=== PATIENT | male | born 1945 | race Caucasian/White ===

== ENCOUNTER → 2021-04-18 09:01 | Outpatient (CLI) | payer MEDICARE, SELFPAY ==
[2021-04-18 09:26] LABS: Basophils # 0.1 K/mm3 (0-0.2); Basophils % 1.2 % (0.1-2.0); Eosinophils # 0.6 K/mm3 (0.0-0.4); Eosinophils % 11.3 % (0.1-12.0); Hematocrit 46.1 % (42.0-52.0); Hemoglobin 15.3 g/dL (14.1-18.0); Lymphocytes % 18.5 % (10-50); Mean Corpuscular HGB Conc 33.1 g/dL (31.8-35.4); Mean Corpuscular Hemoglobin 30.7 pg (27.0-31.2); Mean Corpuscular Volume 92.7 fl (80-94); Mean Platelet Volume 9.4 fl (7.4-10.4); Monocytes # 0.4 K/mm3 (0.1-1.0); Neutrophils # 3.3 K/mm3 (1.8-7.8); Neutrophils % 61.1 % (37.0-80.0); Platelet Count 198 K/mm3 (142-424); Red Blood Count 4.97 M/mm3 (4.60-6.20); Red Cell Distribution Width 14.8 % (11.5-17.5); White Blood Count 5.5 K/mm3 (4.8-10.8)
[2021-04-18 10:02] LABS: Alanine Aminotransferase 21 U/L (12-78); Albumin Level 3.9 g/dl (3.5-5.0); Albumin/Globulin Ratio 1.3 (1.1-1.8); Alkaline Phosphatase 72 U/L (38-126); Anion Gap 8.9 mEq/L (5-15); Aspartate Amino Transferase 27 U/L (17-59); Bilirubin,Total 0.5 mg/dl (0.2-1.3); Blood Urea Nitrogen 24 mg/dl (9-20); Calcium 9.2 mg/dl (8.4-10.2); Carbon Dioxide 29 mmol/L (22.0-30.0); Chloride 104 mmol/L (98-107); Estimated Glomerular Filt Rate 59 ml/min (>60); GFR (African American) 72 ML/MIN (>60); Glucose 107 mg/dl (74-100); Potassium 4.9 mmoL/L (3.5-5.1); Sodium 137 mmol/L (136-145); Total Protein,Serum 6.9 g/dl (6.3-8.2); Uric Acid 5.6 mg/dl (3.5-8.5)
[2021-04-18 10:07] LABS: Erythrocyte Sedimentation Rate 14 mm/hr (0-20)
[2021-04-18 10:08] LABS: C-Reactive Protein 0.6 mg/L (0-4)
[2021-04-19 10:12] LABS: Hep A Ab, IgM Negative (Negative); Hepatitis B Core Antibody IgM Negative (Negative); Hepatitis B Surface Antigen Negative (Negative); Hepatitis C Antibody 0.1 s/co ratio (0.0-0.9)
[2021-04-22 05:36] LABS: QuantiFERON-TB Gold Plus Negative (Negative)
== END ==
PROVIDERS: Visit Provider Nurse Practitioner Family
DX: M06.09 Rheumatoid arthritis without rheumatoid factor, multiple sites (principal); M10.9 Gout, unspecified; R53.83 Other fatigue; Z79.899 Other long term (current) drug therapy
CPT/HCPCS: 36415; 80053; 80074; 84550; 85025; 85651; 86140; 86480

== ENCOUNTER 2022-10-08 09:08 | Emergency (ER) | payer MEDICARE, SELFPAY ==
[2022-10-08] VITALS (10 sets, daily range): BP systolic 120–155; BP diastolic 84–103; PULSE 58–100; RESP 13–17; TEMP 36.6–36.7; O2SAT 95–100; BMI 29.5
--- NOTE | 2022-10-08 09:09 | PC.NURSE ---
DR CRABTREE AT BEDSIDE
--- NOTE | 2022-10-08 09:11 | ECG_ITS ---
APPROVED REPORT Exam: Resting ECG HR:97 bpm ECG Measurements Heart Rate 97 AXES MI 147 P -61 QRSd 101 QRS -42 QT 330 T 52 QTc 385 Conclusion ECTOPIC ATRIAL RHYTHM LEFT AXIS DEVIATION [QRS AXIS < -30] LOW QRS VOLTAGE IN PRECORDIAL LEADS [QRS DEFLECTION < 1.0 mV IN CHEST LEADS] INCOMPLETE RIGHT BUNDLE BRANCH BLOCK [90+ ms QRS DURATION, TERMINAL R IN V1/V2, 40+ ms S IN I/aVL/V4/V5/V6] ANTERIOR MYOCARDIAL INFARCTION , OF INDETERMINATE AGE [40+ ms Q WAVE AND/OR ST/T ABNORMALITY IN V3/V4] ABNORMAL ECG UNCONFIRMED REPORT Electronically signed by : Joel Millan MD 10/09/2022 22:08:43
--- NOTE | 2022-10-08 09:13 | CT_ITS ---
FINAL REPORT CLINICAL HISTORY: RLE weakness atraumatic FINDINGS: CT LUMBAR SPINE TECHNIQUE: Thin section axial CT with sagittal and coronal reconstructions FINDINGS: No fracture is present. Degenerative subluxation at multiple levels. Moderate dextroscoliosis. Significant degenerative canal stenosis throughout the lumbar spine related to disc disease and bony hypertrophic changes. IMPRESSION: 1. No acute fracture 2. Severe degenerative changes. This study was performed using automated techniques to achieve radiation exposure as low as reasonably achievable Reviewed, Interpreted and Dictated by Vilma Lujan MD Transcribed by Rocío Davis Authenticated and [facility]
--- NOTE | 2022-10-08 09:14 | XR_ITS ---
FINAL REPORT CLINICAL HISTORY: RLE weakness FINDINGS: No acute pulmonary opacity is present. There is no evidence of effusion or pneumothorax. Mediastinum is unremarkable. Heart size is normal. Old right rib fractures are noted. IMPRESSION: No acute abnormality. Reviewed, Interpreted and Dictated by Vilma Lujan MD Transcribed by Rocío Davis Authenticated and . [facility]
--- NOTE | 2022-10-08 09:14 | CT_ITS ---
FINAL REPORT CLINICAL HISTORY: fall, head trauma, stroke alert rt leg weakness FINDINGS: Advanced atrophy and chronic ischemic white matter changes are noted. No cortical edema is present. There is no mass or hemorrhage. Ventricles are normal. Bone windows show no skull fracture or obvious obstructive lesion. IMPRESSION: 1. No acute intracranial abnormality or obvious mass. 2. Atrophy and chronic ischemic white matter changes as above. Reviewed, Interpreted and Dictated by Vilma Lujan MD Transcribed by Rocío Davis Authenticated and [facility]
--- NOTE | 2022-10-08 09:14 | CT_ITS ---
FINAL REPORT CLINICAL HISTORY: stroke alert, rt leg weakness FINDINGS: CT NECK ANGIO, WITHOUT AND WITH CONTRAST TECHNIQUE: Thin section axial CT with IV contrast supplemented with 3D MIP reconstruction NASCET criteria and technique was utilized during interpretation. FINDINGS: Aortic arch: Arch shows no significant narrowing. Great vessel origins are widely patent. Right carotid: Minimal plaque disease. No significant stenosis is seen of the cervical common or internal carotid artery. Left carotid: Minimal plaque disease. No significant stenosis is seen of the cervical common or internal carotid artery. Vertebrals: Right vertebral artery is dominant and widely patent. Left vertebral artery is diminutive with the midportion occluded. IMPRESSION: No evidence of significant carotid stenosis. Dominant right vertebral artery widely patent. Left vertebral arterial disease. This study was performed using automated techniques to achieve radiation exposure as low as reasonably Reviewed, Interpreted and Dictated by Vilma Lujan MD Transcribed by Jonathan Savage Authenticated and . [facility]
--- NOTE | 2022-10-08 09:14 | CT_ITS ---
FINAL REPORT CLINICAL HISTORY: stroke alert, rt leg weakness FINDINGS: CTA HEAD TECHNIQUE: Thin section axial CT with contrast with 3D MIP reconstruction FINDINGS: No aneurysm is seen. Major intracranial vessels are patent without significant stenosis. . Persistent origin of the left POSTDOCTORAL FELLOW. Small left distal vertebral artery is stenotic. There may be retrograde flow filling the left vertebral artery. IMPRESSION: Anterior circulation intact. Disease of the distal left vertebral artery. This study was performed using automated techniques to achieve radiation exposure as low as reasonably achievable Reviewed, Interpreted and Dictated by Vilma Lujan MD Transcribed by Jonathan Savage Authenticated and [facility]
--- NOTE | 2022-10-08 09:16 | HMH.EDGENADL ---
Discharge Plan Disposition Patient Disposition: Home, Self-Care Condition: Good Prescriptions Prescriptions: New aspirin [Enteric Coated Aspirin] 81 mg tablet,delayed release (DR/EC) 81 mg PO DAILY 30 Days Qty: 30 0RF clopidogrel [Plavix] 75 mg tablet 75 mg PO DAILY 30 Days Qty: 30 0RF atorvastatin [Lipitor] 40 mg tablet 40 mg PO HS 30 Days Qty: 30 0RF prednisone 20 mg tablet 40 mg PO BID 5 Days Qty: 20 0RF Continued leflunomide 20 mg tablet 20 mg PO DAILY methotrexate sodium 2.5 mg tablet 2.5 mg PO ONCE folic acid 1 mg tablet 1 mg PO DAILY Humira Pen 40 mg/0.8 mL Pen Injector Kit 40 mg SQ WEEKLY Referrals Follow up/Referrals: Guera Portillo MD [Primary Care Provider] - See instructions Araseli Figueroa APRN [Nurse Practitioner] - 10/10/22 8:00 am Clinical Impressions Clinical Impression: Transient right leg weakness Discharge ED Provider: Domingo Delong General Adult HPI General Chief complaint: Weakness Stated complaint: WEAKNESS Time Seen by Provider: 10/08/22 09:12 History of Present Illness HPI narrative: This is a 77-year-old male with history of RA currently on Humira and weekly methotrexate presenting with right lower extremity weakness. Patient states about 1/2-hour prior to arrival, he had an acute weakness in his right lower extremity and right upper extremity. Since that time, right upper extremity has largely improved, it is weak and feels heavy, and tingling, but currently denying any large deficits from baseline of his right upper extremity. Right lower extremity completely immobile, but sensation intact. Patient denies trauma, heavy lifting, states he was walking through tall grass and I had to lift it higher than I usually do, but denies any other history outside of room with normal for him. Denies saddle anesthesia, bowel or bladder dysfunction, left lower extremity symptoms, right-sided facial symptoms, dysarthria, dizziness or imbalance, chest pain, shortness of breath, nausea, vomiting, or any other concerns. Related Data Home Medications Medication Instructions Recorded Confirmed adalimumab 40 mg/0.8 mL 40 mg SQ WEEKLY RA 10/08/22 10/08/22 subcutaneous pen kit (Humira Pen) folic acid 1 mg tablet 1 mg PO DAILY Supplement 10/08/22 10/08/22 leflunomide 20 mg tablet 20 mg PO DAILY RA 10/08/22 10/08/22 methotrexate sodium 2.5 mg tablet 2.5 mg PO ONCE RA 10/08/22 10/08/22 Previous Rx's Medication Instructions Recorded aspirin 81 mg tablet,delayed 81 mg PO DAILY 30 days #30 tabs 10/08/22 release (Enteric Coated Aspirin) atorvastatin 40 mg tablet (Lipitor) 40 mg PO HS 30 days #30 tabs 10/08/22 clopidogrel 75 mg tablet (Plavix) 75 mg PO DAILY 30 days #30 tabs 10/08/22 prednisone 20 mg tablet 40 mg PO BID 5 days #20 tabs 10/08/22 Allergies Allergy/AdvReac Type Severity Reaction Status Date / Time No Known Allergies Allergy Verified 10/08/22 09:09 [facility] Disclaimer: The information contained in this section may have been updated after the patient was seen, as this information can be updated by other users. Medical History Rheumatoid arthritis Family History No significant family history Social History Smoking Status: Never smoker alcohol intake: never current occupational status: retired Travel in the last 8 weeks: None ROS Obtained: Yes All systems reviewed & no additional complaints except as documented Physical Exam General General appearance: alert Head Head exam: atraumatic, normocephalic and normal inspection Eye Eye exam: Present normal appearance, PERRL and EOMI ENT ENT exam: Present normal exam, normal oropharynx, mucous membranes moist, TM's normal bilaterally and normal external ear exam Neck Neck exam: Present normal inspection, full RO
--- NOTE | 2022-10-08 09:18 | PC.NURSE ---
0914 STROKE ALERT, RADIOLOGY NOTIFIED, LAMP SHADE ASSEMBLER NOTIFIED
--- NOTE | 2022-10-08 09:19 | PC.NURSE ---
PT TO CT
--- NOTE | 2022-10-08 09:19 | PC.NURSE ---
Patient going to CT
[2022-10-08 09:23] LABS: Basophils % 0.9 % (0.1-2.0); Eosinophils # 0.2 K/mm3 (0.0-0.4); Eosinophils % 4.1 % (0.1-12.0); Hematocrit 45.9 % (42.0-52.0); Hemoglobin 14.5 g/dL (14.1-18.0); Lymphocytes # 0.9 K/mm3 (0.7-4.5); Lymphocytes % 17.8 % (10-50); Mean Corpuscular HGB Conc 31.6 g/dL (31.8-35.4); Mean Corpuscular Hemoglobin 29.3 pg (27.0-31.2); Mean Corpuscular Volume 92.9 fl (80-94); Mean Platelet Volume 8.9 fl (7.4-10.4); Monocytes # 0.3 K/mm3 (0.1-1.0); Monocytes % 6.4 % (1.7-9.3); Neutrophils # 3.6 K/mm3 (1.8-7.8); Neutrophils % 70.8 % (37.0-80.0); Platelet Count 173 K/mm3 (142-424); Red Blood Count 4.94 M/mm3 (4.60-6.20); Red Cell Distribution Width 14.8 % (11.5-17.5)
[2022-10-08 09:29] LABS: Chloride 101 mmol/L (98-107); Potassium 4.2 mmoL/L (3.5-5.1); Sodium 138 mmol/L (136-145)
[2022-10-08 09:31] LABS: Blood Urea Nitrogen 23 mg/dl (9-20); Creatinine Clearance Estimated 69 mL/min (50-200); Estimated Glomerular Filt Rate 54 ml/min (>60); GFR (African American) 65 ML/MIN (>60)
[2022-10-08 09:32] LABS: Alanine Aminotransferase 22 U/L (12-78); Albumin Level 3.7 g/dl (3.5-5.0); Albumin/Globulin Ratio 1.1 (1.1-1.8); Alkaline Phosphatase 75 U/L (38-126); Anion Gap 13.2 mEq/L (5-15); Aspartate Amino Transferase 32 U/L (17-59); Bilirubin,Total 0.7 mg/dl (0.2-1.3); Calcium 8.9 mg/dl (8.4-10.2); Carbon Dioxide 28 mmol/L (22.0-30.0); Globulin 3.4 g/dL (1.3-3.2); Glucose 103 mg/dl (74-100); Total Protein,Serum 7.1 g/dl (6.3-8.2)
[2022-10-08 09:38] LABS: Activated Partial Thrombo Time 25.8 seconds (22.8-30.6); Prothrombin Time 10.8 seconds (10.1-12.5)
--- NOTE | 2022-10-08 09:40 | PC.NURSE ---
Patient back from CT
[2022-10-08 09:49] LABS: Hemoglobin A1C 5.3 % (4.0-6.0); Troponin I < 0.01 ng/ml (0.00-0.034)
--- NOTE | 2022-10-08 09:54 | PC.NURSE ---
Rounded on patient; call light within reach of patient
--- NOTE | 2022-10-08 09:55 | PC.NURSE ---
bladder scanned showed 247ml in bladder
--- NOTE | 2022-10-08 10:00 | PC.NURSE ---
ROUNDED ON PT, NO NEEDS AT THIS TIME. PT WITH RIGHT LEG CROSSED OVER LEFT, REPORTS BEING ABLE TO LIFT RIGHT LEG FAMILY AT BEDSIDE, CALL LIGHT WITHIN REACH
--- NOTE | 2022-10-08 10:05 | PC.NURSE ---
rounded on pt no complaints at this time, family at bs
[2022-10-08 11:00] LABS: Coronavirus 19, PCR Not Detected (NotDetected); Influenza A, PCR Not Detected (NotDetected); Influenza B, PCR Not Detected (NotDetected)
--- NOTE | 2022-10-08 11:11 | MR_ITS ---
FINAL REPORT TECHNIQUE: Multiplanar MR without gadolinium enhancement CLINICAL HISTORY: RLE weakness, PVR 270 FINDINGS: Sagittal images show normal vertebral height. Alignment is normal. There is moderate diffuse degenerative disc desiccation. Marrow signal pattern is unremarkable. L1-2: There is a mild annular disc bulge and mild facet arthropathy. There is mild central canal stenosis and moderate bilateral neural foraminal narrowing. L2-3: There is a moderate annular disc bulge and facet arthropathy asymmetric to the left. There is left lateral recess stenosis and mild central canal stenosis. There is severe left and moderate right neural foraminal narrowing. L3-4: There is a mild annular disc bulge with mild facet overgrowth. There is mild central canal stenosis and moderate bilateral neural foraminal narrowing. L4-5: There is moderate annular disc bulge and moderate facet arthropathy. There is severe central canal stenosis and severe bilateral neural foraminal narrowing. L5-S1: There is a mild annular disc bulge and moderate facet arthropathy. There is severe bilateral neural neural foraminal narrowing without central canal stenosis. There is a lesion of the left L2 vertebral body with mild expansion extending into the left pedicle. This could be seen with metastatic disease or myeloma. IMPRESSION: 1. Significant multilevel degenerative disc disease and neural foraminal narrowing most pronounced at L4-5. 2. Bony lesion in the left L2 vertebral body could represent myeloma or metastatic disease. Reviewed, Interpreted and Dictated by Vilma Lujan MD Transcribed by Rocío Davis Authenticated and [facility]
--- NOTE | 2022-10-08 11:11 | PC.NURSE ---
POST-VOID BLADDER SCAN 272MLS REPORTED TO ED MD. PT WITHOUT NEEDS AT THIS TIME
--- NOTE | 2022-10-08 11:12 | MR_ITS ---
FINAL REPORT TECHNIQUE: Multiplanar MR without contrast CLINICAL HISTORY: concern for TIA. RIGHT LEG WEAKNESS. FINDINGS: Diffusion sequences show no signal abnormality to indicate acute infarct. Scattered periventricular white matter signal changes are seen compatible with moderate chronic ischemic gliotic disease. Moderate generalized atrophy is present. No mass, hemorrhage or edema is seen. There is a tiny area of chronic encephalomalacia in the right occipital lobe. Ventricles are normal. Major vascular flow voids are intact. IMPRESSION: 1. No mass, acute infarct or hydrocephalus 2. Atrophy and chronic ischemic white matter changes Reviewed, Interpreted and Dictated by Vilma Lujan MD Transcribed by Rocío Davis Authenticated and [facility]
--- NOTE | 2022-10-08 11:12 | PC.NURSE ---
JUAN IN CARE MANAGEMENT NOTIFIED AND OK'D MRI
--- NOTE | 2022-10-08 11:22 | PC.NURSE ---
MRI AT BEDSIDE
--- NOTE | 2022-10-08 11:29 | PC.NURSE ---
PT TO MRI
--- NOTE | 2022-10-08 12:14 | PC.NURSE ---
pt still is at mri, at bs didnt need anything
--- NOTE | 2022-10-08 12:59 | PC.NURSE ---
Pt arrived back to room from mri
--- NOTE | 2022-10-08 12:59 | PC.NURSE ---
PT RETURNED FROM MRI
--- NOTE | 2022-10-08 13:02 | PC.NURSE ---
LAB AT BEDSIDE
--- NOTE | 2022-10-08 13:40 | PC.NURSE ---
Rounded on patient and . requested a drink. Gave a drink and just let them know we were just waiting on the MRI results. Call light within reach of patient
[2022-10-08 13:42] LABS: Troponin I < 0.01 ng/ml (0.00-0.034)
--- NOTE | 2022-10-08 14:09 | PC.NURSE ---
DR CRABTREE UPDATING FAMILY AT THIS TIME
--- NOTE | 2022-10-08 14:17 | PC.NURSE ---
pt voided 150
[2022-10-08 14:18] LABS: Microscopic, Urine URINE MICROSCOPIC (MICROSCOPIC)
--- NOTE | 2022-10-08 14:23 | PC.NURSE ---
Calling [facility] to speak with someone in spine surgery for in the ed for possible transfer
--- NOTE | 2022-10-08 14:33 | PC.NURSE ---
DR CRABTREE SPEAKING WITH [facility]
--- NOTE | 2022-10-08 14:33 | PC.NURSE ---
Chavo Coates is speaking with from Md
[2022-10-08 14:42] LABS: Appearance,Urine Clear (Clear); Bilirubin,Urine Negative (Negative); Blood, Urine 2+ (Negative); Color,Urine Yellow (Yellow); Glucose,Urine (UA) Negative (Negative); Ketones,Urine Negative (Negative); Leukocyte Esterase,Urine Negative (Negative); Nitrate,Urine Negative (Negative); Protein,Urine Negative (Negative); Urobilinogen,Urine 0.2 EU/dl (0.2)
[2022-10-08 14:43] LABS: Bacteria,Urine Trace /lpf
--- NOTE | 2022-10-08 14:46 | MR_ITS ---
PROCEDURE INFORMATION: Exam: MR Cervical Spine Without Contrast Exam date and time: 10/08/2022 4:00 PM Age: 77 years old Clinical indication: Weakness; Additional info: Ra, rue and rle weakness TECHNIQUE: Imaging protocol: Magnetic resonance imaging of the cervical spine without contrast. COMPARISON: CT ANGIO NECK 10/08/2022 9:33 AM FINDINGS: Bones/joints: Straightening of the cervical lordosis. Alignment is otherwise maintained.There is preservation of vertebral body heights. No marrow replacing process. Spinal cord: Normal in signal characteristics.. C2-C3: No significant disc bulge or herniation. No severe spinal canal stenosis. No significant neural foraminal narrowing. C3-C4: Shallow central disc protrusion noted. No significant spinal canal stenosis. Uncovertebral and facet arthropathy produce moderate bilateral neural foraminal narrowing. C4-C5: Shallow central disc protrusion contributes to mild spinal canal stenosis. Uncovertebral and facet arthropathy produce severe bilateral neural foraminal narrowing. C5-C6: Central disc protrusion contributes to [id number] spinal canal stenosis.Uncovertebral and facet arthropathy produce severe bilateral neural foraminal narrowing. C6-C7: Central disc protrusion contributes to gawixaql-[id number] spinal canal stenosis.Uncovertebral and facet arthropathy produce severe bilateral neural foraminal narrowing. C7-T1: No significant disc bulge or herniation. No severe spinal canal stenosis. No significant neural foraminal narrowing. Soft tissues: Unremarkable. Vasculature: Left vertebral artery flow void is obscured by motion artifact. Right vertebral artery flow void is intact. Other findings: Motion artifact does moderately limit the sensitivity of this examination. IMPRESSION: Multilevel degenerative changes more notable for [id number] spinal canal stenosis at C5-C6 and C6-C7 level
--- NOTE | 2022-10-08 14:48 | PC.NURSE ---
DIETARY NOTIFIED AT THIS TIME
--- NOTE | 2022-10-08 14:57 | PC.NURSE ---
rounded on pt states he doesn't need anything at this time,family at bs
--- NOTE | 2022-10-08 15:00 | PC.NURSE ---
SPOKE WITH FAVIO IN CARE MANAGEMENT, APPROVAL OF CERVICAL MRI
--- NOTE | 2022-10-08 15:18 | PC.NURSE ---
DR CRABTREE SPEAKING WITH DR BROWN
--- NOTE | 2022-10-08 15:44 | PC.NURSE ---
[facility]
--- NOTE | 2022-10-08 15:47 | PC.NURSE ---
mri called and said they had on scheduled and wasn't able to do, so they are coming to get Mr Oh for his mri
--- NOTE | 2022-10-08 15:52 | PC.NURSE ---
PT TO MRI
--- NOTE | 2022-10-08 16:20 | EXP.HP ---
History of Present Illness *Admission Date: 10/08/22 *Reason for visit:: Right-sided weakness *History of present illness: Medicine was consulted by ER to discuss possible admission for observation versus discharge home. Mr. Beavers is a pleasant 77-year-old male with history of RA on Humira and weekly methotrexate. He presented to the ER with right lower extremity weakness. On evaluation he states that approximately an hour before coming into the ER he had an acute episode of weakness in his right lower extremity and right upper extremity. States he was stepping over some grass and had to lift his right leg high. Normally he walks with almost a shuffling gait per his report. Upon doing this his right leg felt very heavy and weak and he proceeded to fall. He was able to get himself back to his truck and drive back to his house. He unfortunately could not use his leg at this time and also noted right upper extremity weakness. No reported facial droop per family. His brought him to the hospital and he was noted to have right lower extremity immobility and weakness, still having intact sensation however. Required ER staff to get him out of the car as he could not bear weight or use his right leg. Denied any numbness or tingling in his groin, no bladder or bowel dysfunction. No left-sided deficits. Normal speech. Denies any dizziness or vertigo. No chest pain, shortness of breath, nausea or vomiting. The ER initiated an extensive work-up with imaging of patient's head and back. Labs obtained that were essentially normal/nonactionable. CBC and CMP within a normal range. CTs did not show any acute strokes. MRI showed concern for lumbar radiculopathy and foraminal narrowing most significant at L4/L5. No compression of cord noted on spinal imaging. The ER reached out to neurosurgery at , they recommended outpatient follow-up for the back findings. During his work-up and time in the ER, patient's symptoms improved with resumption to normal baseline neurologic function over the next 4 to 5 hours. Additional concern for TIA was expressed given the right-sided weakness that gradually improved. ER consulted medicine for further evaluation. On discussion in the ER, patient feels very comfortable going home. States he is back to baseline. feels comfortable taking him home with close follow-up. Discussed the need for oral medication including Plavix and aspirin given suspected TIA versus peripheral radiculopathy causing his right-sided weakness. Discussed admitting for observation overnight and starting oral medication versus going home. Patient and family expressed comfort and desire with going home. [facility] Disclaimer: The information contained in this section may have been updated after the patient was seen, as this information can be updated by other users. Medical History Rheumatoid arthritis Family History No significant family history Social History (Updated 10/08/22 @ 17:20 by Domingo Delong MD) Smoking Status: Never smoker alcohol intake: never current occupational status: retired Travel in the last 8 weeks: None Review of Systems Review of Systems Review of systems (narrative): 14 point review of systems performed, pertinent positives and negatives as per HPI Meds Home Medications and Allergies Home Medications Medication Instructions Recorded Confirmed Type adalimumab 40 mg/0.8 mL 40 mg SQ WEEKLY RA 10/08/22 10/08/22 History subcutaneous pen kit (Humira Pen) aspirin 81 mg tablet,delayed 81 mg PO DAILY 30 days #30 tabs 10/08/22 Rx release (Enteric Coated Aspirin) atorvastatin 40 mg tablet (Lipitor) 40 mg PO HS 30 days #30 tabs 10/08/22 Rx clopidogrel 75 mg tablet (Plavix) 75 mg PO DAILY 30 days #30 tabs 10/08/22 Rx folic acid 1 mg tablet 1 mg PO DAILY Supplement 10/08/22 10/08/22 History le
--- NOTE | 2022-10-08 16:21 | PC.NURSE ---
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
--- NOTE | 2022-10-08 16:23 | PC.NURSE ---
pt is still at mri, family waiting in room states they don't need anything at this time
--- NOTE | 2022-10-08 17:06 | PC.NURSE ---
PT RETURNED FROM MRI
--- NOTE | 2022-10-09 09:53 | CARE MANAGER ---
Appt made yesterday with podiatry on 10/10/22 @ 8am. Called Spine Surgery @ [phone] and his appointment is 11/07/22 @ 1350. Spoke with and she was given information for both appointments and she states she will call and schedule follow up with Dr. Portillo. MEET Chakraborty
== END 2022-10-08 17:27 | disposition home or self-care (01) ==
PROVIDERS: Emergency Provider Emergency Medicine; PCP Family Medicine
DX: R53.1 Weakness (principal); M06.9 Rheumatoid arthritis, unspecified
CPT/HCPCS: 36415; 70450; 70496; 70498; 70551; 71045; 72131; 72141; 72148; 76376; 80053; 81001; 83036; 84484; 85025; 85610; 85730; 93005; 99285; C9803; Q9967; U0003; U0005

== ENCOUNTER → 2022-10-10 09:06 | Outpatient (CLI) | payer MEDICARE, SELFPAY ==
--- NOTE | 2022-10-10 09:09 | XR_ITS ---
FINAL REPORT CLINICAL HISTORY: Foot Pain FINDINGS: Right foot Three views were obtained. There is advanced arthritic disease of the metatarsophalangeal joints with hammertoe deformity throughout. 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 There is erosion of the 2nd metatarsal head, likely related to chronic dislocation. There are mild degenerative changes of the midfoot and hindfoot. There is severe hallux valgus deformity. IMPRESSION: Chronic deformities and arthritic changes, most pronounced in the forefoot. Reviewed, Interpreted and Dictated by Vilma Lujan MD Transcribed by Kylee Kent Authenticated and [facility]
--- NOTE | 2022-10-10 09:09 | XR_ITS ---
FINAL REPORT CLINICAL HISTORY: Foot Pain FINDINGS: Left foot Three views were obtained. There are severe arthritic changes of the metatarsophalangeal joints. There is subluxation involving the 2nd and 3rd metatarsophalangeal joints. Hammertoe deformity is identified. There are mild degenerative changes proximally. There is hallux valgus deformity. IMPRESSION: Chronic deformities and arthritic change, most pronounced in the forefoot. Reviewed, Interpreted and Dictated by Vilma Lujan MD Transcribed by Kylee Kent Authenticated and [facility]
--- NOTE | 2022-10-10 09:09 | XR_ITS ---
FINAL REPORT CLINICAL HISTORY: foot pain FINDINGS: Right ankle Three views were obtained. There is no acute fracture or dislocation. There is a tiny chronic avulsion fracture along the tip of the lateral malleolus. Mild degenerative changes are present. IMPRESSION: No acute process. Reviewed, Interpreted and Dictated by Vilma Lujan MD Transcribed by Kylee Kent Authenticated and [facility]
--- NOTE | 2022-10-10 09:09 | XR_ITS ---
FINAL REPORT CLINICAL HISTORY: foot pain FINDINGS: Left ankle Three views were obtained. There is no acute fracture or dislocation. The joint spaces appear normal. No soft tissue abnormality is identified. IMPRESSION: No acute process. Reviewed, Interpreted and Dictated by Vilma Lujan MD Transcribed by Kylee Kent Authenticated and [facility]
== END ==
PROVIDERS: PCP Family Medicine; Visit Provider Nurse Practitioner Family
DX: M79.672 Pain in left foot (principal); M79.671 Pain in right foot; M25.572 Pain in left ankle and joints of left foot
CPT/HCPCS: 73610; 73630

== ENCOUNTER 2025-01-15 12:17 | Emergency (ER) | payer MEDICARE, SELFPAY ==
[2025-01-15] VITALS (12 sets, daily range): BP systolic 117–140; BP diastolic 76–94; PULSE 67–100; RESP 13–18; TEMP 36.8; O2SAT 96–99; BMI 23.7; BMI 25.7
[2025-01-15] MEDS: LACTATED RINGERS 1000ML 1,000 ML 999 ML IV (12:13)
--- NOTE | 2025-01-15 12:20 | ECG_ITS ---
APPROVED REPORT Exam: Resting ECG HR:91 bpm ECG Measurements Heart Rate 91 AXES QRSd 113 QRS -28 QT 389 T 55 QTc 438 Conclusion ATRIAL FIBRILLATION WITH ABERRANT CONDUCTION OR VENTRICULAR PREMATURE COMPLEXES LOW QRS VOLTAGE IN PRECORDIAL LEADS [QRS DEFLECTION < 1.0 mV IN CHEST LEADS] INCOMPLETE RIGHT BUNDLE BRANCH BLOCK [90+ ms QRS DURATION, TERMINAL R IN V1/V2, 40+ ms S IN I/aVL/V4/V5/V6] POSSIBLE SEPTAL MYOCARDIAL INFARCTION , PROBABLY OLD [30 ms Q WAVE IN V1/V2] ABNORMAL RHYTHM ECG UNCONFIRMED REPORT Electronically signed by : YECENIA ALVAREZ, 01/16/2025 06:55:31
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
--- OUTSIDE RECORDS SUMMARY | 2025-01-15 12:28 | XMS_ITS | Encounter Summary ---
Author Organization [facility] Address [address] [place] [address] Care Team Providers Care Hand Bobbin Cleaner Name Role Phone Jerrell Portillo MD Primary Care Provider [phone] Encounter Details Date Type Department Care Team (Late Contact Info) Description 09/24/2024 Results Follow-Up [facility] [address] [address] Miguel Galvez APRN [address] [id number] Social History Tobacco Use Types Packs/Day Years Used Date Smoking Tobacco: Never Smokeless Tobacco: Never Alcohol Use Standard Drinks/Week Comments Not Currently 0 (1 standard drink = 0.6 oz pur e alcohol) Sex and Gender Information Value Date Recorded Sex Assigned at Not on file Legal Sex Male 9:02 AM EDT Gender Identity Not on file Sexual Orientation Not on file documented as of this encounter Plan of Treatment Upcoming Encounters Date Type Department Care Team (Late st Contact Info) Description 02/08/2025 2:15 PM EDT Office Visit [facility] [address] [address] Roberto Eubanks MD [address] [id number] documented as of this encounter Visit Diagnoses Not on filedocumented in this encounter Care Teams Hand Bobbin Cleaner Relationship Specialty Start Date End Date Jerrell Portillo MD [address] [place] [address] PCP - General Family Medicine 11/20/23 documented as of this encounter
--- OUTSIDE RECORDS SUMMARY | 2025-01-15 12:28 | XMS_ITS | Clinical Summary ---
Author Organization Healthcare Address [address] [place] [address] Care Team Providers Care Health And Wellness Instructor Name Role Phone Unavailable Primary Care Provider Unavailabl e Social History Tobacco Use Types Packs/Day Years Used Date Smoking Tobacco: Never Assessed Sex and Gender Information Value Date Recorded Sex Assigned at Not on file Legal Sex Male 7:47 PM EDT Gender Identity Not on file Sexual Orientation Not on file Last Filed Vital Signs Vital Sign Reading Time Taken Comments Blood Pressure 133/84 10/08/2022 2:35 PM EDT Pulse 62 10/08/2022 2:35 PM EDT Temperature 36.7 C (98 F) 10/08/2022 2:35 PM EDT Respiratory Rate 15 10/08/2022 2:35 PM EDT Oxygen Saturation 100% 10/08/2022 2:35 PM EDT RA Inhaled Oxygen Concentration - - Weight - - Height - - Body Mass Index - - Plan of Treatment Health Maintenance Due Date Last Done Comments [facility]-Depression Screening 1945 [facility]-Hepatitis C Screening 1945 [facility]-Medicare Annual Wellness (AWV) 1945 [facility]-Infant/Child/Adol SDOH Screenings 1945 [facility]- SDOH Screenings 09/04/1965 [facility]-Adult SDOH Screenings 09/04/1965 [facility]-Pneumococcal Vaccine: 50+ Years (1 of 1 - PCV) 09/04/1997 [facility]-Zoster Vaccines (1 of 2) 09/04/1997 [facility]-RSV Vaccine: 60+ Years or (1 - 1-dose 75+ series) 09/04/2022 [id number] Vaccine ( - season) 2024 02/08/2021, 08/10/2020, 07/13/2020 [facility]-Influenza Vaccine (#1) 02/01/202503/07, 04/19/2021, 03/24/2020, Additional history exists [facility]-DTaP,Tdap,and Td Vaccines (2 - Td or Tdap) 04/11/2027 04/11/2017 HPV Vaccines Aged Out No longer eligi ble based on patient's age to complete this topic [facility]-HIB Vaccines Aged Out No longer e ligible based on patient's age to complete this topic [facility]-Hepatitis A Vaccines Aged Out No longer eligible based on patient's age to complete this topic [facility]-IPV Vaccines Aged Out No longer e ligible based on patient's age to complete this topic [facility]-Rotavirus Vaccines Aged Out No lo nger eligible based on patient's age to complete this topic Insurance [employer] MEDICARE
--- OUTSIDE RECORDS SUMMARY | 2025-01-15 12:28 | XMS_ITS ---
Author Organization Unknown Problems Date Problem Result OnSetDate Icd10 SnomedCode Severity Cu stom 01/27/2024 00:00:00 Hypertension I10 01/27/2024 00:00:00 Mixed hyperlipidemia E78.2
--- OUTSIDE RECORDS SUMMARY | 2025-01-15 12:28 | XMS_ITS | Encounter Summary ---
Author Organization [facility] Address [address] [place] [id number] Care Team Providers Care Therapeutic Dietitian Name Role Phone Jerrell Portillo MD Primary Care Provider [phone] Reason for Visit * Reason Comments Med Refill Encounter Details Date Type Department Care Team (Late st Contact Info) Description 12/07/2024 Refill [facility] [address] [phone] Miguel Galvez APRN 330 [facility] [address] [place], [place] [id number] Rheumatoid arthritis of multiple 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 rheumatoid factor; High risk medication use Social History Tobacco Use Types Packs/Day Years [...] on file documented as of this encounter Miscellaneous Notes * Telephone Encounter - Nicol Law MA - 12/10/2024 12:04 PM EDT Rx Refill Note Requested Prescriptions Pending Prescriptions Disp Refills methotrexate 2.5 MG tablet [Pharmacy Med Name: methotrexate sodium 2.5 mg tablet] 36 tablet 0 Sig: TAKE 3 TABLETS BY MOUTH ONCE A WEEK Last office visit with prescribing clinician: 07/28/2024 Last telemedicine visit with prescribing clinician: Visit date not found Next office visit with prescribing clinician: 12/15/2024 09/17/2024 Would you like a call back once the refill request has been completed: [] Yes [] No If the office needs to give you a call back, can they leave a voicemail: [] Yes [] No Declining methotrexate refill at this time, patient needs updated labs for refill. Standing order on file for every 8 weeks. Has appointment next week 12/15. HUB OK TO RELAY Nicol Law MA 12/10/24, 12:04 EDT documented in this encounter Plan of Treatment Upcoming Encounters Date Type Department Care Team (Late st Contact Info) Description 02/08/2025 2:15 PM EDT Office Visit [facility] [address] [phone] Roberto Eubanks MD [address] [place] [id number] documented as of this encounter Visit Diagnoses Diagnosis Rheumatoid arthritis of multiple 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 rheumatoid factor High risk medication use documented in this encounter Care Teams Therapeutic Dietitian Relationship Specialty Start Date End Date Jerrell Portillo MD [address] [place] [address] PCP - General Family Medicine 11/20/23 documented as of this encounter
--- OUTSIDE RECORDS SUMMARY | 2025-01-15 12:28 | XMS_ITS | Clinical Summary ---
Author Organization [facility] Address [address] [place] [address] Care Team Providers Care Jewelry Consultant Name Role Phone Jerrell Portillo MD Primary Care Provider [phone] Allergies No known active allergies Medications Cholecalciferol 25 MCG (1000 UT) tablet Take 1 tablet by mouth Daily. Active enzalutamide (Xtandi) 40 MG tablet tablet Take 4 tablets by mouth Daily. Active folic acid (FOLVITE) 1 MG tablet Take 1 tablet by mouth Daily. 90 tablet 3 4 Active denosumab (Xgeva) 120 MG/1.7ML solution injection Inject 1.7 mL under the skin into the appropriate area as directed 1 (One) Time. 4 Active tamsulosin (FLOMAX) 0.4 MG capsule 24 hr capsule Take 1 capsule by mouth Daily. Active Leuprolide Acetate, 6 Month, (LUPRON DEPOT, 6-MONTH, IM) Inject 1 dose as directed Every 6 (Six) Months. Active methotrexate 2.5 MG tabletIndicatio ns:Rheumatoid arthritis of multiple 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 rheumatoid factor,High risk medication use Take 3 tablets by mouth 1 (One) Time Per Week. 36 tablet 5 Active leflunomide (ARAVA) 20 MG tablet TAKE ONE TABLET BY MOUTH ONCE A DAY 90 tablet 5 Active Active Problems Problem Noted Date Diagnosed Date Prostate cancer 11/21/2023 Assessment & Plan (11/26/2023 8:22 AM EDT): Urologist: Dr. Gamez Denies oncologist at this time He was diagnosed with prostate cancer 11/23. He tells me it has spread to his back and left hip. He is on an oral agent for treatment now and received a hormone shot. He reports finishing radiation for prostate cancer treatment History of wrist fracture 11/21/2023 Assessment & Plan (11/26/2023 8:22 AM EDT): history of right wrist fracture Osteopenia of multiple sites 11/21/2023 Assessment & Plan (11/26/2023 8:22 AM EDT): Resolved Bone density 07/04/2020-normal bone density. Generalized osteoarthrosis, involving multiple s ites 11/21/2023 Assessment & Plan (11/26/2023 8:56 AM EDT): Chronic back pain related to degenerative arthritis improved after steroid injection right knee Knees are not bothering him much today other than occasional give-way Avoids NSAIDs with low GFR Immunosuppression due to drug therapy 11/21/2023 Assessment & Plan (11/26/2023 8:22 AM EDT): methotrexate, leflunomide. Hepatitis panel negative April 2021 QTB negative 03/13/22. Well tolerated and effective. I discussed the side effects of leflunomide including but not limited to rash, GI upset, hematologic and liver abnormalities. handout provided on leflunomide labs cbc cmp every 8-12 weeks for toxicity monitoring High risk medication use 11/21/2023 Assessment & Plan (11/26/2023 8:22 AM EDT): MTX, leflunomide Well tolerated. No serious infections Risks of methotrexate discussed and include but are not limited to severe liver damage that can be fatal, the possible need for liver biopsy, bone marrow suppression that can lead to dangerously low blood counts, GI side effects including mouth sores and diarrhea, fatigue, and rare risk of severe pulmonary complications. There should be no alcohol consumed with MTX. MTX can cause severe abnormalities whether the mother or father is taking the medication and thus must be avoided if is a possibility. All medication is to be taken one day a week only. The need for q 8-12 week labs and the need for folic acid supplementation were discussed. 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 Gamez) Low improved disease activity. Swollen joint count 0. Scattered tender joints today due to osteoarthritis. Recommend continue methotrexate and leflunomide. Refilled Remain off Humira for now as he can not tell much difference without it off since 12/23 with metastatic prostate cancer diagnosis Avoids NSAIDs with low GFR Medicines well tolerated and effective. Labs reviewed and are stable The patient is doing satisfactorily on the current medical therapy. Recent labs reviewed and are without sign of toxicity. Plan will be to continue current medication, frequent intensive lab monitoring every 8-12 weeks (CBC, CMP) for toxicity monitoring and follow up in 4 months. New standing order provided Encounters Date Type Department Care Team Description 12/07/2024 Refill [facility] [address] [phone] Miguel Galvez APRN Rheumatoid arthritis of multiple 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 rheumatoid factor; High risk medication use 11/20/2024 Refill [facility] [address] [phone] Roberto Eubanks MD from Last 3 Months Immunizations Immunization Administration Dates Next Due COVID-19 (UNSPECIFIED) 08/01/2020 Influenza, Unspecified 03/07/2022 Family History Medical History Relation Name Comments Diabetes Mother Relation Name Status Comments Mother Social History Tobacco Use Types Packs/Day Years Used Date Smoking Tobacco: Never Smokeless Tobacco: Never Tobacco Cessation:Counseling Given: Not Answered Alcohol Use Standard Drinks/Week Comments Not Currently 0 (1 standard drink = 0.6 oz pur e alcohol) Sex and Gender Information Value Date Recorded Sex Assigned at Not on file Legal Sex Male 9:02 AM EDT Gender Identity Not on file Sexual Orientation Not on file Last Filed Vital Signs Vital Sign Reading Time Taken Comments Blood Pressure 138/74 07/28/2024 8:12 AM EST Pulse 68 07/28/2024 8:12 AM EST Temperature 36.3 C (97.3 F) 07/28/2024 8:12 AM EST Respiratory Rate - - Oxygen Saturation - - Inhaled Oxygen Concentration - - Weight 98 kg (216 lb) 07/28/2024 8:12 AM EST Height 177.8 cm (5' 10 ) 07/28/2024 8:12 AM EST Body Mass Index 30.99 07/28/2024 8:12 AM EST Plan of Treatment Upcoming Encounters Date Type Department Care Team (Late st Contact Info) Description 02/08/2025 2:15 PM EDT Office Visit [facility] [address] [phone] Roberto Eubanks MD [address] [phone] Health Maintenance Due Date Last Done Comments Pneumococcal Vaccine 50+ (1 of 2 - PCV) 09/04/1966 ZOSTER VACCINE (1 of 2) 09/04/1966 RSV Vaccine - Adults (1 - 1- dose 75+ series) 09/04/2022 ANNUAL WELLNESS VISIT 11/18/2023 HEPATITIS C SCREENING 11/18/2023 COVID-19 Vaccine (5 - 2023-2 5 season) 2024 02/08/2021, 08/10/2020, 08/01/2020, Additional history exists INFLUENZA VACCINE 03/03/2025 03/17/2024, , 03/07/2022, Additional history exists TDAP/TD VACCINES (2 - Td or Tdap) 04/11/2027 017 Insurance [employer] MEDICARE ADVANTAGE PPO Care Teams Jewelry Consultant Relationship Specialty Start Date End Date Jerrell Portillo MD [address] [place] [address] PCP - General Family Medicine 11/20/23
--- OUTSIDE RECORDS SUMMARY | 2025-01-15 12:28 | XMS_ITS | Encounter Summary ---
Author Organization [facility] Address [address] [place] [address] Care Team Providers Care Radial Drill Press Set Up Operator Name Role Phone Jerrell Portillo MD Primary Care Provider Reason for Visit * Reason Comments Med Refill Encounter Details Date Type Department Care Team (Late st Contact Info) Description 11/20/[address] [facility] R[facility] [address] [phone] Roberto Eubanks MD [address] [phone] Social History Tobacco Use Types Packs/Day Years [...] Telephone Encounter - Nicol Law MA - 11/20/2024 11:46 AM EDT Rx Refill Note Requested Prescriptions Pending Prescriptions Disp Refills leflunomide (ARAVA) 20 MG tablet [Pharmacy Med Name: leflunomide 20 mg tablet] 90 tablet 0 Sig: TAKE ONE TABLET BY MOUTH ONCE A DAY Last office visit with prescribing clinician: 07/28/24 Last telemedicine visit with prescribing clinician: Visit date not found Next office visit with prescribing clinician: 12/15/24 09/17/24 Would you like a call back once the refill request has been completed: [] Yes [] No If the office needs to give you a call back, can they leave a voicemail: [] Yes [] No Leflunomide rx sent, hub ok to relay Nicol Law MA 11/20/24, 11:46 EDT documented in this encounter Plan of Treatment Upcoming Encounters Date Type Department Care Team (Late st Contact Info) Description 02/08/2025 2:15 PM EDT Office Visit [facility] [address] [phone] Roberto Eubanks MD [address] [place] [id number] documented as of this encounter Visit Diagnoses Not on filedocumented in this encounter Care Teams Radial Drill Press Set Up Operator Relationship Specialty Start Date End Date Jerrell Portillo MD [address] [place] [address] PCP - General Family Medicine 11/20/23 documented as of this encounter
--- NOTE | 2025-01-15 12:30 | XR_ITS ---
FINAL REPORT CLINICAL HISTORY: s/p trauma COMPARISON: 10/08/2022 FINDINGS: A single frontal view of the chest was obtained. There are new airspace opacities within the lung bases, greatest on the right. This could be inflammatory or neoplastic. It is unlikely to be posttraumatic. There are chronic appearing fractures of the posterior right 4th and 5th ribs which are new from the prior exam. There is no pneumothorax. No pleural effusions are seen. Mediastinum is unremarkable. Heart size is normal. IMPRESSION: Bibasilar airspace opacities, greatest on the right, could be infectious or neoplastic. No evidence of pneumothorax. Reviewed, Interpreted and Dictated by Vilma Lujan MD Transcribed by Any Olivas Authenticated and [facility]
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
--- NOTE | 2025-01-15 12:34 | PC.NURSE ---
pt in CT at this time
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
[2025-01-15 12:38] LABS: Hematocrit 37.1 % (42.0-52.0); Hemoglobin 11.9 g/dL (14.1-18.0); Immature Granulocytes % 1.1 %; Mean Corpuscular HGB Conc 32.1 g/dL (31.8-35.4); Mean Corpuscular Hemoglobin 29.3 pg (27.0-31.2); Mean Corpuscular Volume 91.4 fl (80-94); Nucleated Red Blood Cells % 0 %; Platelet Count 175 K/mm3 (142-424); Red Blood Count 4.06 M/mm3 (4.60-6.20); Red Cell Distribution Width-SD 46.9 fL; White Blood Count 5.7 K/mm3 (4.8-10.8)
[2025-01-15 12:42] LABS: VBG HCO3 18.0 mmol/L (23-30); VBG PCO2 29.9 mmol/L (35-51); VBG PH 7.40 mmol/L (7.31-7.41); VBG PO2 69.8 mmol/L (28-40)
[2025-01-15 12:44] LABS: Lactate Venous 2.5 mmol/L (0.4-2.0)
[2025-01-15 12:53] LABS: Albumin Level 3.2 g/dl (3.5-5.0); Chloride 109 mmol/L (98-107); Potassium 3.9 mmoL/L (3.5-5.1); Sodium 137 mmol/L (136-145)
[2025-01-15] MEDS: IOPAMIDOL-370 (76%);100ML BOTTLE 160 ML IV (12:54)
[2025-01-15] MEDS: SODIUM CHLORIDE 0.9% 10ML SYR (RAD ONLY) 10 ML IV (12:54)
[2025-01-15] MEDS: 0.9 % SODIUM CHLORIDE 50 ML VIAL 80 ML IV (12:54)
[2025-01-15 12:55] LABS: Blood Urea Nitrogen 17 mg/dl (9-20); Creatinine Clearance Estimated 75 mL/min (50-200); Creatinine,Serum 0.90 mg/dl (0.66-1.25); Estimated Glomerular Filt Rate 82 ml/min (>60); GFR (African American) 99 ML/MIN (>60); INR 1.00 (0.9-1.1); Prothrombin Time 11.1 seconds (10.1-12.5)
[2025-01-15 12:56] LABS: Alanine Aminotransferase 13 U/L (12-78); Albumin/Globulin Ratio 0.9 (1.1-1.8); Alkaline Phosphatase 85 U/L (38-126); Anion Gap 9.9 mEq/L (5-15); Aspartate Amino Transferase 22 U/L (17-59); Bilirubin,Total 0.9 mg/dl (0.2-1.3); Calcium 8.4 mg/dl (8.4-10.2); Carbon Dioxide 22 mmol/L (22.0-30.0); Creatine Kinase 36 U/L (55-170); Globulin 3.7 g/dL (1.3-3.2); Glucose 134 mg/dl (74-100); Lipase 32 U/L (23-300); Total Protein,Serum 6.9 g/dl (6.3-8.2)
--- NOTE | 2025-01-15 12:56 | PC.NURSE ---
1216- Miko BARNETT as bedside performing fast exam 1218- negative fast exam, EKG performed 1224- radiology at bedside for abdomen/pelvis xray 1231- patient to CT scan
[2025-01-15 13:33] LABS: Magnesium 1.6 mg/dl (1.6-2.3)
[2025-01-15] MEDS: TET/DIPHTH/PERT-ADULT 0.5ML SYRINGE 0.5 ML IM (13:33)
[2025-01-15 13:40] LABS: Microscopic, Urine URINE MICROSCOPIC (MICROSCOPIC)
[2025-01-15 14:01] LABS: Bilirubin,Urine Negative (Negative); Color,Urine YELLOW (Yellow); Glucose,Urine (UA) Negative (Negative); Ketones,Urine Negative (Negative); Leukocyte Esterase,Urine TRACE (Negative); PH,Urine 6.0 (5.0-8.5); Protein,Urine Negative (Negative); Specific Gravity, Urine 1.010 (1.005-1.030); Urobilinogen,Urine 0.2 EU/dl (0.2)
[2025-01-15 14:13] LABS: Phosphorous 1.8 mg/dl (2.5-4.5)
[2025-01-15] MEDS: BACITRACIN ZINC OINT 30GM TUBE TP (14:27)
[2025-01-15 14:30] LABS: Amphetamine/Metha Screen,Urine Negative ng/ml (<1000); Barbiturates Screen,Urine Negative ng/ml (<200); Benzodiazepines Screen,Urine Negative ng/ml (<200); Methadone Screen,Urine Negative ng/ml (<300)
[2025-01-15 14:35] LABS: RBC Morphology Normal; Total Cells Counted 100
[2025-01-15] MEDS: SODIUM CHLORIDE 0.9% IV (14:39)
[2025-01-15] MEDS: SODIUM PHOSPHATE IV (14:39)
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
[2025-01-15 14:54] LABS: Troponin I < 0.01 ng/ml (0.00-0.034)
[2025-01-15 15:46] LABS: Troponin I < 0.01 ng/ml (0.00-0.034)
[2025-01-15 15:47] LABS: Bacteria,Urine 1+ /lpf
[2025-01-15 16:05] LABS: Opiate Screen,Urine Negative ng/ml (<300); Phencyclidine Screen,Urine Negative ng/ml (<25)
[2025-01-15 16:44] LABS: Reflex Lactic Add Lactic Reflex
--- NOTE | 2025-01-15 16:56 | ECG_ITS ---
APPROVED REPORT Exam: Resting ECG HR:76 bpm ECG Measurements Heart Rate 76 AXES HI 189 P 82 QRSd 105 QRS -38 QT 386 T 53 QTc 417 Conclusion SINUS RHYTHM WITH OCCASIONAL SUPRAVENTRICULAR PREMATURE COMPLEXES LEFT AXIS DEVIATION [QRS AXIS < -30] LOW QRS VOLTAGE IN PRECORDIAL LEADS [QRS DEFLECTION < 1.0 mV IN CHEST LEADS] INCOMPLETE RIGHT BUNDLE BRANCH BLOCK [90+ ms QRS DURATION, TERMINAL R IN V1/V2, 40+ ms S IN I/aVL/V4/V5/V6] NONSPECIFIC T-WAVE ABNORMALITY ABNORMAL ECG UNCONFIRMED REPORT Electronically signed by : YECENIA ALVAREZ, 01/16/2025 06:54:45
[2025-01-15] MEDS: K-PHOS NEUTRAL 250MG TABLET 500 MG PO (17:05)
[2025-01-15] MEDS: ACETAMINOPHEN 500MG TAB 1000 MG PO (17:05)
== END 2025-01-15 17:15 | disposition home or self-care (01) ==
PROVIDERS: Emergency Provider Student in an Organized Health Care Education/Training Program; PCP Family Medicine
DX: T22.211A Burn of second degree of right forearm, initial encounter (principal); R55 Syncope and collapse; X08.8XXA Exposure to other specified smoke, fire and flames, initial encounter
CPT/HCPCS: 70450; 70496; 70498; 71045; 71275; 72125; 72128; 72131; 72170; 74174; 80053; 80307; 81001; 82550; 82803; 83690; 83735; 84100; 84484; 85007; 85025; 85027; 85610; 87086; 90471; 90715; 93005; 96361; 96374; 99291; G0390; J7050; J7120; Q9967

== ENCOUNTER 2025-02-05 21:08 | Emergency (ER) | payer MEDICARE, SELFPAY ==
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
[2025-02-05 21:08] VITALS: BP 138/91; PULSE 67; RESP 18; TEMP 36.8; O2SAT 100; BMI 24.4
--- NOTE | 2025-02-05 21:20 | ECG_ITS ---
APPROVED REPORT Exam: Resting ECG HR:90 bpm ECG Measurements Heart Rate 90 AXES WI 136 P -57 QRSd 118 QRS -43 QT 361 T 73 QTc 409 Conclusion ECTOPIC ATRIAL RHYTHM LEFT AXIS DEVIATION [QRS AXIS < -30] LOW QRS VOLTAGE IN PRECORDIAL LEADS [QRS DEFLECTION < 1.0 mV IN CHEST LEADS] INCOMPLETE RIGHT BUNDLE BRANCH BLOCK [90+ ms QRS DURATION, TERMINAL R IN V1/V2, 40+ ms S IN I/aVL/V4/V5/V6] PROBABLE ANTERIOR MYOCARDIAL INFARCTION , OF INDETERMINATE AGE [35 ms Q WAVE IN V3/V4] ABNORMAL ECG UNCONFIRMED REPORT Electronically signed by : Vlad Casey, 02/05/2025 23:27:27
--- NOTE | 2025-02-05 21:25 | PC.NURSE ---
Patient presents to ED with and son at bedside who state that this evening it was noted approx 1800 patient was found to be confused with slurred speech. Patient was brought to ER, stroke alert called at 2124. LKW 1800. Patient with initial NIH of 6, but inconclusive due to severe receptive aphasia. Patient is able to move all extremities and intermittently follow commands. Patient asked to speak NIHSS words, and patient unable to repeat back to me. Patient able to speak but responds only is 'Ok , to all questions asked. Patient is alert, and tracks people around room with his eyes. Make appropriate eye contact. Patient to CT at 2126 for scans. marketing production coordinator at [facility] contacted at 2136. Decision made at [address] Casey to not administer TNK due to patient having noted old subdural hematoma. Family updated per RN and MD. Decision also made per MD and [facility] stroke team to not provide any medication loading doses prior to transfer. Family remains at bedside with patient. Transport arranged for patient to be transferred to [facility] neuro ICU. Report called to [facility] at 2214. Patient repeat NIHSS at 2230 remains a 6.
--- NOTE | 2025-02-05 21:27 | CT_ITS ---
PROCEDURE INFORMATION: Exam: CTA Neck With Contrast Exam date and time: 02/05/2025 9:31 PM Age: 79 years old Clinical indication: Stroke-like symptoms; Speech disturbance; Bilateral facial droop; Additional info: Possible stroke TECHNIQUE: Imaging protocol: Computed tomographic angiography of the neck with contrast. Exam focused on the cervical segments of the vasculature. 3D rendering (Not supervised by radiologist): MIP and/or 3D reconstructed images were created by the technologist. Radiation optimization: All CT scans at this facility use at least one of these dose optimization techniques: automated exposure control; mA and/or kV adjustment per patient size (includes targeted exams where dose is matched to clinical indication); or iterative reconstruction. Contrast material: ISOUVE 370; Contrast volume: 80 ml; Contrast route: INTRAVENOUS (IV); COMPARISON: CT ANGIO NECK 01/15/2025 12:48 PM FINDINGS: Right common carotid artery: No stenosis. No dissection or occlusion. Right internal carotid artery: No stenosis of the extracranial segment. No dissection or occlusion. Right external carotid artery: No occlusion or stenosis of the origin. Left common carotid artery: No stenosis. No dissection or occlusion. Left internal carotid artery: No stenosis of the extracranial segment. No dissection or occlusion. Left external carotid artery: No occlusion or stenosis of the origin. 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 Distal 1/2 is reconstituted via muscular collateral arteries Aorta: No aortic dissection Soft tissues: See Left vertebral artery finding. Bones/joints: No acute fracture. IMPRESSION: 1. 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 This is a known finding. 2. No significant stenosis or occlusion of the carotid or right vertebral artery. REFERENCES: NASCET CRITERIA. The degree of stenosis in the cervical segment of the internal carotid artery is based on NASCET criteria. Normal is no stenosis. Mild is less than 50% stenosis. Moderate is 50-69% stenosis. Severe is 70% to 99% stenosis. Total occlusion is no detectable patent lumen.
--- NOTE | 2025-02-05 21:27 | CT_ITS ---
PROCEDURE INFORMATION: Exam: CTA Head With Contrast, Arteriography Exam date and time: 02/05/2025 9:31 PM Age: 79 years old Clinical indication: Stroke-like symptoms; Speech disturbance; Bilateral facial droop; Additional info: Possible stroke TECHNIQUE: Imaging protocol: Computed tomographic angiography of the head with contrast. Exam focused on the arteries. 3D rendering (Not supervised by radiologist): MIP and/or 3D reconstructed images were created by the technologist. Radiation optimization: All CT scans at this facility use at least one of these dose optimization techniques: automated exposure control; mA and/or kV adjustment per patient size (includes targeted exams where dose is matched to clinical indication); or iterative reconstruction. Contrast material: ISOUVE 370; Contrast volume: 80 ml; Contrast route: INTRAVENOUS (IV); COMPARISON: CT ANGIO HEAD 01/15/2025 12:48 PM FINDINGS: ANTERIOR CIRCULATION: Right internal carotid artery: Intracranial segment is patent with no significant stenosis. No aneurysm. Right middle cerebral artery: No occlusion or significant stenosis. No aneurysm. Right anterior cerebral artery: No occlusion or significant stenosis. No aneurysm. Left internal carotid artery: Intracranial segment is patent with no significant stenosis. No aneurysm. Left middle cerebral artery: No occlusion or significant stenosis. No aneurysm. Left anterior cerebral artery: No occlusion or significant stenosis. No aneurysm. POSTERIOR CIRCULATION: Right vertebral artery: No occlusion or significant stenosis. No aneurysm. Left vertebral artery: Hypoplastic left vertebral artery as previously detailed Basilar artery: No occlusion or significant stenosis. No aneurysm. Right posterior cerebral artery: No occlusion or significant stenosis. No aneurysm. Left posterior cerebral artery: origin left SUPPLIER RELATIONSHIP DIRECTOR Brain: No definite mass, mass effect, or midline shift. Cerebral ventricles: No ventriculomegaly. Bones/joints: Unremarkable. No acute fracture. Soft tissues: Unremarkable. IMPRESSION: No large vessel stenosis or occlusion.
--- NOTE | 2025-02-05 21:27 | CT_ITS ---
PROCEDURE INFORMATION: Exam: CT Head Without Contrast Exam date and time: 02/05/2025 9:29 PM Age: 79 years old Clinical indication: Stroke-like symptoms; Speech disturbance; Bilateral facial droop; Additional info: Possible stroke TECHNIQUE: Imaging protocol: Computed tomography of the head without contrast. Radiation optimization: All CT scans at this facility use at least one of these dose optimization techniques: automated exposure control; mA and/or kV adjustment per patient size (includes targeted exams where dose is matched to clinical indication); or iterative reconstruction. Other technique: STROKE PROTOCOL was implemented. COMPARISON: CT ANGIO HEAD 01/15/2025 12:48 PM FINDINGS: Brain: Small left subdural hematoma. Maximum thickness in coronal plane is 8 mm. Hematoma is positioned over the left frontal and parietal lobes. Normal midline shift. Cerebral ventricles: Periventricular hypoattenuation. Likely chronic microvascular ischemic demyelination. Paranasal sinuses: Visualized sinuses are unremarkable. No fluid levels. Mastoid air cells: Visualized mastoid air cells are well aerated. Bones: Unremarkable. No acute fracture. Soft tissues: See Brain finding. IMPRESSION: 1. Small left subdural hematoma measuring up to 8 mm without the rightward midline shift 2. 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 THIS REPORT CONTAINS FINDINGS THAT MAY BE CRITICAL TO PATIENT CARE. The findings were verbally communicated via telephone conference with Dr. Casey at 9:47 PM EDT on 02/05/2025. The findings were acknowledged and understood.
--- OUTSIDE RECORDS SUMMARY | 2025-02-05 21:29 | XMS_ITS | Encounter Summary ---
Author Organization [facility] Address [address] [id number] Care Team Providers Care Spar Cap Beveler Name Role Phone Jerrell Portillo MD Primary Care Provider [phone] Encounter Details Date Type Department Care Team (Latest Contact Info) Description 01/20/2025 Travel Social History Tobacco Use Types Packs/Day Years Used Date Smoking Tobacco: Never Assessed Sex and Gender Information Value Date Recorded Sex Assigned at Not on file Legal Sex Male 7:47 PM EDT Gender Identity Not on file Sexual Orientation Not on file documented as of this encounter Plan of Treatment Not on file documented as of this encounter Visit Diagnoses Not on filedocumented in this encounter Additional Health Concerns Assessment Noted Time A fall risk assessment has been complete d for the patient 01/20/2025 2:08 PM EDT A Body Mass Index follow-up plan has been documented for the patient 01/20/2025 2:49 PM EDT documented as of this encounter Care Teams Spar Cap Beveler Relationship Specialty Start Date End Date Jerrell Portillo MD [address] [place] [address] PCP - General 01/20/25 documented as of this encounter
--- OUTSIDE RECORDS SUMMARY | 2025-02-05 21:29 | XMS_ITS | Encounter Summary ---
Author Organization [facility] Address [address] [place] [address] Care Team Providers Care Screen Printing Equipment Setter Name Role Phone Jerrell Portillo MD Primary Care Provider [phone] Encounter Details Date Type Department Care Team (Late Contact Info) Description 01/25/2025 Results Follow-Up [facility] R[facility] [address] [address] Miguel Galvez APRN [address] [id number] Social History Tobacco Use Types Packs/Day Years [...] Encounters Date Type Department Care Team (Late Contact Info) Description 02/08/2025 2:15 PM EDT Office Visit [facility] [address] [address] Roberto Eubanks MD [address] [phone] documented as of this encounter Visit Diagnoses Not on filedocumented in this encounter Care Teams Screen Printing Equipment Setter Relationship Specialty Start Date End Date Jerrell Portillo MD [address] [place] [address] PCP - General Family Medicine 11/20/23 documented as of this encounter
--- OUTSIDE RECORDS SUMMARY | 2025-02-05 21:29 | XMS_ITS | Clinical Summary ---
Author Organization [facility] Address [address] [place] [address] Care Team Providers Care Agricultural Equipment Operator Name Role Phone Jerrell Portillo MD Primary Care Provider [phone] Allergies No known active allergies Medications Cholecalciferol [...] acid supplementation were discussed. 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 (Darlin Robison); 3 kids 1 son with PLS(detention), 1 lives [place] Current: leflunomide 2009 [...] Encounters Date Type Department Care Team Description 01/25/2025 Results Follow-Up [facility]HE[facility] [address] [place] [phone] Miguel Galvez APRN 12/07/2024 Refill [facility] [address] [place] [phone] Miguel Galvez, STEPHY Rheumatoid arthritis of multiple 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 rheumatoid factor; High risk medication use 11/20/2024 Refill [facility] [address] [place] [phone] Roberto Eubanks MD from Last 3 Months [...] Description 02/08/2025 2:15 PM EDT Office Visit [facility] [address] [address] Roberto Eubanks MD [address] [phone] Health Maintenance Due Date Last Done Comments Pneumococcal Vaccine 50+ (1 of 2 - PCV) 09/04/1966 ZOSTER VACCINE (1 of 2) 09/04/1966 RSV Vaccine - Adults (1 - 1- dose 75+ series) 09/04/2022 ANNUAL WELLNESS VISIT 11/18/2023 HEPATITIS C SCREENING 11/18/2023 COVID-19 Vaccine (5 - 2024-2 6 season) 2025 02/08/2021, 08/10/2020, 08/01/2020, Additional history exists INFLUENZA VACCINE 03/03/2025 03/17/2024, , 03/07/2022, Additional history exists TDAP/TD VACCINES (2 - Td or Tdap) 04/11/2027 11/09/2 017 Procedures Procedure Name Priority Date/Time Associated Diagnosis Comments SCANNED - LABS 01/21/2025 from Last 3 Months Results * LABS SCANNED (01/21/2025) Miguel Galvez APRN LAB BLOOD ORDERABLES F inal Result from Last 3 Months Insurance [facility] MEDICARE ADVANTAGE PPO Care Teams Agricultural Equipment Operator Relationship Specialty Start Date End Date Jerrell Portillo MD [address] [place] [address] PCP - General Family Medicine 11/20/23
--- OUTSIDE RECORDS SUMMARY | 2025-02-05 21:29 | XMS_ITS | Encounter Summary ---
Author Organization [facility] Address [address] [id number] Care Team Providers Care Palletiser Operator Name Role Phone Jerrell Portillo MD Primary Care Provider [phone] Encounter Details Date Type Department Care Team (Latest Contact Info) Description 01/27/2025 Travel Social History Tobacco Use Types Packs/Day [...] documented as of this encounter Care Teams Palletiser Operator Relationship Specialty Start Date End Date Jerrell Portillo MD [address] [place] [address] PCP - General 01/20/25 documented as of this encounter
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
--- OUTSIDE RECORDS SUMMARY | 2025-02-05 21:29 | XMS_ITS | Encounter Summary ---
Author Organization [facility] Address [address] [place] [address] Care Team Providers Care Tank Builder Supervisor Name Role Phone Jerrell Portillo MD Primary Care Provider [phone] Encounter Details Date Type Department Care Team (Late Contact Info) Description 09/24/2024 Results Follow-Up [facility] RHEUM[facility] [address] [phone] Miguel Galvez APRN [address] [phone] Social History Tobacco Use Types Packs/Day Years [...] Description 02/08/2025 2:15 PM EDT Office Visit [facility] R[facility]UM[facility] [address] [phone] Roberto Eubanks MD [address] [phone] documented as of this encounter Visit Diagnoses Not on filedocumented in this encounter Care Teams Tank Builder Supervisor Relationship Specialty Start Date End Date Jerrell Portillo MD [address] [place] [address] PCP - General Family Medicine 11/20/23 documented as of this encounter
--- OUTSIDE RECORDS SUMMARY | 2025-02-05 21:29 | XMS_ITS | Encounter Summary ---
Author Organization [facility] Address [address] [place] [address] Care Team Providers Care Drapery Worker Name Role Phone Unavailable Primary Care Provider Unavailabl e Encounter Details Date Type Department Care Team (Late st Contact Info) Description 01/18/2025 Telephone [facility] [address] [place] [address] Molly Quinonez, CONVENTION PLANNER [address] [facility] [address] [place] [address] Social History Tobacco Use Types Packs/Day Years Used Date Smoking Tobacco: Never Assessed Sex and Gender Information Value Date Recorded Sex Assigned at Not on file Legal Sex Male 7:47 PM EDT Gender Identity Not on file Sexual Orientation Not on file documented as of this encounter Miscellaneous Notes * Telephone Encounter - Tyler Brown - 01/18/2025 10:56 AM EDT Pts called the clinic to schedule a [facility] discharge consult. We scheduled next available. Pts is agreeable to time/date/location. documented in this encounter Plan of Treatment Not on file documented as of this encounter Visit Diagnoses Not on filedocumented in this encounter
--- OUTSIDE RECORDS SUMMARY | 2025-02-05 21:29 | XMS_ITS | Encounter Summary ---
Author Organization [facility] Address [address] [place] [address] Care Team Providers Care Health Information Director Name Role Phone Jerrell Portillo MD Primary Care Provider [phone] Reason for Visit * Reason Comments Med Refill Encounter Details Date Type Department Care Team (Late st Contact Info) Description 12/07/[address] [facility] RHEUMATOLOGY [address] [address] Miguel Galvez APRN 330 [facility] [address] [place], [place] [phone] Rheumatoid arthritis of multiple 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 rheumatoid [...] Description 02/08/2025 2:15 PM EDT Office Visit [facility] [address] [address] Roberto Eubanks MD [address] [place] [id number] documented as of this encounter Visit Diagnoses Diagnosis Rheumatoid arthritis of multiple 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 rheumatoid factor High risk medication use documented in this encounter Care Teams Health Information Director Relationship Specialty Start Date End Date Jerrell Portillo MD [address] [place] [address] PCP - General Family Medicine 11/20/23 documented as of this encounter
--- OUTSIDE RECORDS SUMMARY | 2025-02-05 21:29 | XMS_ITS | Encounter Summary ---
Author Organization [facility] Address [address] [phone] Care Team Providers Care Group Insurance Specialist Name Role Phone Jerrell Portillo MD Primary Care Provider [phone] Encounter Details Date Type Department Care Team (Latest Contact Info) Description 02/04/2025 Travel Social History Tobacco Use Types Packs/Day Years Used Date Smoking Tobacco: Never Smokeless Tobacco: Current Chew Alcohol Use Standard Drinks/Week Comments Never 0 [...] on file documented as of this encounter Functional Status * AUDIT-C Score Answer Date of Assessment Author 0 02/04/2025 10:03 AM PARTHAT Solis Reyes * Question Answer Date of Assessment Author Q1: How often do you have a drink containing alcohol? Never 02/04/2025 10:03 AM PARTHAT Solis Reyes Q2: How many drinks containing alcohol do you have on a typical day when you are drinking? Patient does not drink 02/04/2025 10:03 AM PARTHAT Solis Reyes Q3: How often do you have six or more drinks on one occasion? Never 02/04/2025 10:03 AM EDT Reyes, Solis A documented as of this encounter Plan of [...] documented as of this encounter Care Teams Group Insurance Specialist Relationship Specialty Start Date End Date Jerrell Portillo MD [address] [place] [address] PCP - General 01/20/25 documented as of this encounter
[2025-02-05 21:30] LABS: Hematocrit 42.7 % (42.0-52.0); Hemoglobin 13.5 g/dL (14.1-18.0); Immature Granulocytes % 0.6 %; Mean Corpuscular HGB Conc 31.6 g/dL (31.8-35.4); Mean Corpuscular Hemoglobin 28.6 pg (27.0-31.2); Mean Corpuscular Volume 90.5 fl (80-94); Nucleated Red Blood Cells % 0 %; Platelet Count 285 K/mm3 (142-424); Red Blood Count 4.72 M/mm3 (4.60-6.20); Red Cell Distribution Width-SD 45.5 fL; White Blood Count 6.2 K/mm3 (4.8-10.8)
[2025-02-05 21:35] VITALS: BP 150/91; PULSE 69; RESP 28; O2SAT 95
[2025-02-05 21:36] LABS: Albumin Level 4.0 g/dl (3.5-5.0); Chloride 104 mmol/L (98-107)
[2025-02-05 21:37] LABS: Potassium 4.9 mmoL/L (3.5-5.1); Sodium 136 mmol/L (136-145)
[2025-02-05 21:39] LABS: Alanine Aminotransferase 11 U/L (12-78); Anion Gap 11.9 mEq/L (5-15); Aspartate Amino Transferase 25 U/L (17-59); Blood Urea Nitrogen 28 mg/dl (9-20); Carbon Dioxide 25 mmol/L (22.0-30.0); Creatinine Clearance Estimated 65 mL/min (50-200); Creatinine,Serum 1.10 mg/dl (0.66-1.25); Estimated Glomerular Filt Rate 65 ml/min (>60); GFR (African American) 79 ML/MIN (>60)
[2025-02-05 21:40] LABS: Albumin/Globulin Ratio 0.9 (1.1-1.8); Alkaline Phosphatase 100 U/L (38-126); Bilirubin,Total 0.8 mg/dl (0.2-1.3); Calcium 10.1 mg/dl (8.4-10.2); Cholesterol 183 mg/dl (140-200); Globulin 4.6 g/dL (1.3-3.2); Glucose 104 mg/dl (74-100); HDL Cholesterol 41 mg/dl (40-60); Total Protein,Serum 8.6 g/dl (6.3-8.2); Triglycerides 102 mg/dl (30-150)
[2025-02-05] MEDS: IOPAMIDOL-370 (76%);100ML BOTTLE 80 ML IV (21:42)
[2025-02-05] MEDS: SODIUM CHLORIDE 0.9% 10ML SYR (RAD ONLY) 10 ML IV (21:42)
[2025-02-05] MEDS: 0.9 % SODIUM CHLORIDE 50 ML VIAL IV (21:42)
[2025-02-05 21:43] LABS: Activated Partial Thrombo Time 25.1 seconds (22.8-30.6); INR 0.99 (0.9-1.1); Prothrombin Time 11.0 seconds (10.1-12.5)
[2025-02-05 21:50] VITALS: BP 149/92; PULSE 84; RESP 18; O2SAT 94
[2025-02-05 21:57] LABS: Troponin I < 0.01 ng/ml (0.00-0.034)
[2025-02-05 22:00] VITALS: BP 133/95; PULSE 85; RESP 27; O2SAT 91
--- NOTE | 2025-02-05 22:00 | ED_ITS ---
Discharge Plan Disposition Patient Disposition: Xfer Other Prescriptions Prescriptions: No Action Xtandi 40 mg tablet 160 mg PO DAILY leflunomide 20 mg tablet 20 mg PO DAILY folic acid 1 mg tablet 1 mg PO DAILY Humira Pen 40 mg/0.8 mL Pen Injector Kit 40 mg SQ WEEKLY aspirin [Enteric Coated Aspirin] 81 mg tablet,delayed release (DR/EC) 81 mg PO DAILY 30 Days Qty: 30 0RF Referrals Follow up/Referrals: Guera Portillo MD [Primary Care Provider, Medical] - See instructions Clinical Impressions Clinical Impression: Acute CVA (cerebrovascular accident), Receptive aphasia Stand Alone Forms Stand Alone Forms: Transfer Record - ED Print Language Print Language: Yakut Discharge ED Provider: Saeed Casey General Adult HPI General Chief complaint: Neuro Symptoms/Deficit Stated complaint: Confused,slurred speech Time Seen by Provider: 02/05/25 21:20 Mode of Arrival: Ambulatory Source of Information: Patient, Spouse and Relative Description of Symptoms (Recalled from ER Triage Doc. by RN): patient presents to the ED for slurred speech reported by family. patients last known normal was around 6 pm today. patient unable to complete NIHSS correctly in every aspect. PAtine only able to squeeze fiungers bilaterally which are extremly weak, but one is not noticeable weaker than the other. Patient does not know his name, birthday, why hes here, where he's at, and seems to have a hard time understanding anything thats bieng asked of him. History of Present Illness HPI narrative: Patient is a 79-year-old male presenting today with comprehension difficulties starting suddenly at 6 PM today. Unable to understand what anyone is saying history is severely limited secondary to that. No motor weakness from historical standpoint. Family was with him when he suddenly changed at 6 PM. Of note patient a few weeks ago was found next to his tractor confused presumptively with a head injury was ultimately transferred [facility] with a burn. But since that time had returned to his baseline neurologically and was awake alert oriented as of 6 PM tonight with articulate speech. He has been increasingly fatigued recently and weak but no other symptoms preceding this. Related Data Home Medications ?Medication ?Instructions ?Recorded ?Confirmed adalimumab 40 mg/0.8 mL 40 mg SQ WEEKLY RA 10/08/22 01/18/25 subcutaneous pen kit (Humira Pen) folic acid 1 mg tablet 1 mg PO DAILY Supplement 01/2301/18/25 leflunomide 20 mg tablet 20 mg PO DAILY RA 10/08/22 0 01/18/25 enzalutamide 40 mg tablet (Xtandi) 160 mg PO DAILY 01/18/25 Previous Rx's ?Medication ?Instructions ?Recorded aspirin 81 mg tablet,delayed 81 mg PO DAILY 30 days #3 0 tabs 10/08/22 release (Enteric Coated Aspirin) Allergies Allergy/AdvReac Type Severity Reaction Status Date / Time No Known Allergies Allergy Verified 01/18/25 08:48 [facility] Disclaimer: The information contained in this section may have been updated after the patient was seen, as this information can be updated by other users. Medical History (Updated 02/05/25 @ 22:00 by Saeed Casey MD) Abnormal ECG Rheumatoid arthritis Family History Other No significant family history Social History Smoking Status: Unknown if ever smoked alcohol intake: never current occupational status: retired Travel in the last 8 weeks?: None Have you lived/traveled outside [place] in past 30 days?: No Contact w/someone who lives/traveled outside [place] past 30 days?: No Exposure to someone with infectious disease in past 14 days?: No Do you have a fever (greater than 100.4 F or 38 C)?: No Have you tested positive for COVID-19?: No Exposed to someone with COVID-19 in past 14 days?: No Do you have a sore throat?: No Do you have a cough?: No Do you have any weakness?: No Do you have any diarrhea?: No Are you experiencing any unusual bleeding?: No Do you have any muscle aches/pain?: No Do you have any abdominal pain?: No Are you experiencing loss of taste or smell?: No Other Medical History Have you received the Pneumonia Vaccine: Yes ROS Obtained: Yes All systems reviewed & no additional complaints except as documented Physical Exam General General appearance: alert and in no apparent distress Respiratory Respiratory exam: Present normal lung sounds bilaterally Cardiovascular Cardiovascular exam: Present regular rate and normal rhythm Neurological Exam Neurological exam: Present alert and other (Patient appears to have severe receptive aphasia saying some words that are able to be understood but not understanding or following any commands NIH stroke scale of 6 given however patient severely limited in his ability to follow any commands for scoring assessment does appear to be moving all ext) Medical Decision Making Medical Records Screening: Per USPSTF and CDC recommendations, given the prevalence of disease in our region, it is our hospital?s policy to screen for HIV and viral Hepatitis for all patients aged 18 and over and those with ongoing risk factors. [place] Inquiry Pt receiving controlled substance: No Vital Signs: 02/05/25 21:08 Temperature 98.2 F Temperature Source Oral Pulse Rate [Right Radial] 67 Respiratory Rate 18 Blood Pressure [Left Arm] 138/91 H Blood Pressure Mean [Left Arm] 106 Blood Pressure Source [Left Arm] Automatic Cuff Blood Pressure Position [Left Arm] Sitting 02 Sat by Pulse Oximetry 100 Oxygen Delivery Method Room Air Lab Data Lab results reviewed: Yes I reviewed the patient's lab results. Lab Results 02/05/25 21:24: WBC 6.2, RBC 4.72, Hgb 13.5 L, Hct 42.7, MCV 90.5, MCH 28.6, M CHC 31.6 L, RDW 13.6, Plt Count 285, MPV 9.4, Neut % (Auto) 78.0, Lymph % (Auto) 9.1 L, [place] % (Auto) 9.7 H, Eos % (Auto) 1.8, Baso % (Auto) 0.8, Neut # (Auto) 4.8, Lymph # (Auto) 0.6 L, [place] # (Auto) 0.6, Eos # (Auto) 0.1, Baso # (Auto) 0.1, PT 11.0, INR 0.99, APTT 25.1, Sodium 136, Potassium 4.9, Chloride 104, Carbon Dioxide 25, Anion Gap 11.9, BUN 28 H, Creatinine 1.10, Estimated Creat Clear 65, Estimated GFR 65, Est GFR ( Amer) 79, Glucose 104 H, Calcium 10.1, Total Bilirubin 0.8, AST 25, ALT 11 L, Alkaline Phosphatase 100, Troponin I < 0.01, Total Protein 8.6 H, Albumin 4.0, Globulin 4.6 H, Albumin/Globulin Ratio 0.9 L, Triglycerides 102, Cholesterol 183, LDL Cholesterol Direct 103.63, VLDL Cholesterol 20, HDL Cholesterol 41, Cholesterol/HDL Ratio 4.5 H, Plasma/Serum Alcohol < 10 02/05/25 21:24 02/05/25 21:24 Orders (Tests/Meds): ED MEDICATIONS Generic Name Dose Route Start Last Admin Trade Name Jarretq PRN Reason Stop Dose Admin Sodium Chloride 10 ml 02/05/25 21:26 Sodium Chloride 0.9% 10ml Flush Syringe IV 03/07/25 21:25 NEEDED PRN Maintain IV Site Sodium Chloride 10 ml 02/05/25 21:41 02/05/25 21:42 Sodium Chloride 0.9% 10ml Syr (Rad Only) IV 03/07/25 21:40 10 ml NEEDED PRN Administration Maintain IV Site Discontinued Medications Generic Name Dose Route Start Last Admin Trade Name Freq PRN Reason Stop Dose Admin Iopamidol 80 ml 02/05/25 21:41 02/05/25 21:42 Iopamidol-370 (76%);100ml Bottle IV 02/05/25 21:42 80 ml ONCE ONE Administration Sodium Chloride 50 ml 02/05/25 21:41 02/05/25 21:42 0.9 % Sodium Chloride 50 Ml Vial IV 02/05/25 21:42 50 ml ONCE ONE Administration Tenecteplase 22.5 mg 02/05/25 21:45 02/05/25 21:47 Tenecteplase 50mg Vial (Stroke) IV 02/05/25 21:46 Not Given ONCE ONE ORDERS Category Date Time Status CT angio head Stat Cat Scan 02/05/25 21:[address] angio neck Stat Cat Scan 02/05/25 21:[address] head/brain wo con Stat Cat Scan 02/05/25 21:27 Completed Activated Partial Thrombo Time Stat Lab 02/05/25 21:24 Completed Complete Blood Count Auto Diff Stat Lab 02/05/25 21:24 Completed Comprehensive Metabolic Panel Stat Lab 02/05/25 21:24 Completed Drug Screen,Urine Stat Lab 02/05/25 21:27 Ordered Ethyl Alcohol Stat Lab 02/05/25 21:24 Completed Lipid Panel Stat Lab 02/05/25 21:24 Completed Prothrombin Time INR Stat Lab 02/05/25 21:24 Completed Troponin I Q3H Lab 02/06/25 00:30 Ordered Troponin I Q3H Lab 02/06/25 03:30 Ordered Troponin I Stat Lab 02/05/25 21:24 Completed Urinalysis and Microscopic Stat Lab 02/05/25 21:27 Ordered Medical Decision Narrative: Patient with above history and physical presenting today with severe receptive aphasia which appears to be debilitating family at the bedside include son and . Initially it seemed as though the patient had no contraindications to thrombolytics and patient was immediately sent to scanner with a stroke alert. I did not appreciate any obvious blood or LVO images were shared with [facility] I discussed with the family the possibility of doing TNK as well as discussing the case with [facility] who agreed. However radiology called and felt that there was a small subdural hematoma I do appreciate this on closer evaluation as do the stroke team at [facility]. Therefore we believe he is not a candidate for TNK as a result of this. Patient also has no LVO. However given the fact that he does have a small subdural hematoma and these new neurologic findings he will be admitted to the ICU with a stroke center at [facility] ultimately excepted by [facility]. Family understands that prognosis is guarded. Patient ultimately transferred by EMS for further stroke management. Additionally we held aspirin and Plavix because of the subdural hematoma. Critical Care Critical Care Time Critical Care Time: Yes Attestation: On 02/05/25, the high probability of a clinically significant, sudden or life threatening deterioration of the following system(s) required my full and direct attention, intervention and personal management. The time I documented below is in addition to time spent performing reported procedures but includes the following listed in this critical care notation. Total Time Total Critical Care Time: 35
[2025-02-05 22:30] VITALS: BP 161/97; RESP 21
[2025-02-05 23:06] VITALS: BP 161/97; PULSE 83; RESP 22; TEMP 37.2; O2SAT 93
== END 2025-02-05 23:10 | disposition other institution (70) ==
PROVIDERS: Nurse Practitioner; Emergency Provider Student in an Organized Health Care Education/Training Program; PCP Family Medicine
DX: I63.9 Cerebral infarction, unspecified (principal); R47.01 Aphasia; R47.81 Slurred speech; R29.706 NIHSS score 6; W19.XXXA Unspecified fall, initial encounter
CPT/HCPCS: 70450; 70496; 70498; 80053; 80061; 80320; 84484; 85025; 85610; 85730; 93005; 99285; 99291; Q9967